=== PATIENT | male | born 1965 | race Two or more races ===

== ENCOUNTER 2018-09-03 21:39 | Inpatient (IN) | payer MEDICAID, OTHER ==
[~2018-09-03] VITALS: Ht 172.7 cm; Wt 93.0 kg
[2018-09-03] MEDS ORDERED: IV NORMAL SALINE 500 ML BAG IV ONE (22:15)
--- NOTE | 2018-09-03 22:16 | NUR ---
Xray at bedside
[2018-09-03 22:34] LABS: BASOPHILS # (AUTO) 0.1 K/uL (0.0-8.0); BASOPHILS % (AUTO) 1.1 % (0.0-2.0); HEMOGLOBIN 10.7 g/dL (12.5-16.3); LYMPHOCYTES # (AUTO) 2.1 K/uL (20.0-40.0); LYMPHOCYTES % (AUTO) 18.5 % (20.5-51.5); MEAN CORPUSCULAR HEMOGLOBIN 31.5 uug (23.8-33.4); MEAN CORPUSCULAR HGB CONC 34 g/dL (32.5-36.3); MEAN CORPUSCULAR VOLUME 91.5 fL (73.0-96.2); MONOCYTES # (AUTO) 0.5 K/uL (2.0-10.0); MONOCYTES % (AUTO) 4.3 % (0.0-11.0); NEUTROPHILS # (AUTO) 8.6 K/uL (1.8-8.9); NEUTROPHILS % (AUTO) 76.1 % (38.5-71.5); PLATELET COUNT (AUTO) 244 K/uL (152-348); RED BLOOD CELL COUNT(AUTO) 3.39 MIL/uL (4.06-5.63); WHITE BLOOD COUNT (AUTO) 11.3 K/uL (3.6-10.2)
[2018-09-03 22:44] LABS: POTASSIUM 3.6 mmol/L (3.5-5.1)
[2018-09-03 22:56] LABS: BILIRUBIN,DIRECT 0.3 mg/dL (0.0-0.2); BILIRUBIN,TOTAL 0.6 mg/dL (0.2-1.0); TOTAL PROTEIN, SERUM 6.2 g/dL (6.4-8.2)
[2018-09-03] MEDS ORDERED: VANCOMYCIN IV 1,000 MG in IV DEXTROSE 5% 250 ML IV ONE (23:15)
[2018-09-03] MEDS ORDERED: LEVOFLOXACIN 750 MG/D5W 150 ML PIGGYBACK IV ONE (23:15)
[2018-09-03] MEDS ORDERED: PIPERACILLIN SODIUM/TAZOBACTAM 4.5 G in IV DEXTROSE 5% 50 ML IV SCH (23:15)
[2018-09-03] MEDS ORDERED: PIPERACILLIN/TAZO 4.5 GM VIAL IV ONE (23:19)
[2018-09-03] MEDS ORDERED: IV NS 1000 ML 1,000 ML IV PRN (23:28)
[2018-09-03] MEDS ORDERED: ACETAMINOPHEN 325 MG TABLET PO PRN (23:30)
[2018-09-03] MEDS ORDERED: ONDANSETRON 4 MG/2 ML VIAL IV PRN (23:30)
[2018-09-03] MEDS ORDERED: IV NORMAL SALINE 1000 ML BAG IV ONE (23:30)
--- NOTE | 2018-09-03 23:30 | NUR ---
Dr. Rasmussen on panel call with Taya Tobias HOUSEKEEPING AIDE. Patient accepted to Tele, diagnosis Pneumonia.
[2018-09-03] MEDS ORDERED: LEVOFLOXACIN 750MG/D5W 150 ML IV ONE (23:37)
--- NOTE | 2018-09-03 23:49 | NUR ---
Report given to Farrukh ARREOLA Tele.
[2018-09-04] MEDS ORDERED: DEXTROSE 50% 50 ML DISP.SYRIN IV PRN
--- NOTE | 2018-09-04 | NUR ---
Patient is not considered a Code Sepsis per ER MD Rasmussen.
--- NOTE | 2018-09-04 00:01 | NUR ---
Pt. admitted to Telemetry , under care of Taya Tobias NP. Dx: PNA Belongs List completed
[2018-09-04] MEDS ORDERED: VANCOMYCIN IV 200 ML ONE (00:02)
--- NOTE | 2018-09-04 00:20 | NUR ---
Received patient from ER in stable condition. No acute distress noted. Admitted to telemetry under BIT TAPPER Taya Tobias. Admit Dx of PNA/Sepsis. Vital signs within range upon admission. Patient is afebrile. Sinus rhythm on tele monitor. Noted with 2 IV site both AC's 20G. Patient is A/Ox4 & able to make his needs known. skin intact. On 2L o2 via NC, denies SOB & pain. Noted with left arm swelling. Patient came in with Vanco & levaquin hanging. Will continue to run IV ATBs from ER & begin sepsis protocol per MD order.
[2018-09-04 00:25] VITALS: BP 130/75
[2018-09-04 00:26] LABS: BAND % (MANUAL) 2 % (0-10); LYMPHOCYTES % (MANUAL) 12 % (20-40); METAMYELOCYTES % 3 % (0-1); MONOCYTES % (MANUAL) 3 % (2-10); MYELOCYTES % 7 % (0-0); NEUTROPHILS % (MANUAL) 67 % (42-75)
[2018-09-04] MEDS ORDERED: ALBUTEROL SULFATE 2.5 MG/ 0.5 ML NEBU NEB PRN (00:30)
[2018-09-04] MEDS: BLOOD SUGAR DIAGNOSTIC 1 EACH STRIP VI SCH ×5 (00:54→23:25)
[2018-09-04] MEDS ORDERED: METRONIDAZOLE 500 MG/NS 100ML 100 ML IV SCH (01:00)
--- NOTE | 2018-09-04 01:00 | NUR ---
Per ER nurse, Sepsis protocol/fluid challenge was not started in ER because patient does not qualify with just an elevated lactic acid level. 1st Lactic acid was drawn in ER at 3.8. Second lactic acid level taken upon admission to unit. Elementary Substitute Teacher Jatinder put in orders for fluid challenge. Will complete ATB IV infusion from ER & begin fluid challenge. Patient currently stable sinus rhythm on tele, vital signs within range.
--- NOTE | 2018-09-04 01:25 | NUR ---
Lactic acid at 4.6. Informed airline reservation agent Stefan Nichols with [facility]. Will continue to monitor patient through shift.
--- NOTE | 2018-09-04 03:00 | NUR ---
IV ATB Levaquin infused. Fluid challenge starting with total of 3L of IV fluids to be infused over 4-5 hours per protocol. Will continue to monitor through shift.
[2018-09-04 03:38] VITALS: BP 117/73
[2018-09-04] MEDS ORDERED: PIPERACILLIN SODIUM/TAZO 3.375 GM VIAL ONE (04:06)
[2018-09-04] MEDS ORDERED: METRONIDAZOLE 500 MG/NS 100ML 100 ML IV ONE (04:07)
[2018-09-04] MEDS: METRONIDAZOLE 500 MG/NS 100ML 100 ML IV SCH ×3 (05:20→22:25)
[2018-09-04] MEDS: PIPERACILLIN SODIUM/TAZOBACTAM 3.375 G in IV DEXTROSE 5% 50 ML IV SCH ×4 (06:27→23:57)
--- NOTE | 2018-09-04 07:00 | NUR ---
Fluid challenge completed. Patient is stable. Vital signs within range. Sinus rhythm on tele monitor. Patient is alert, awake, & verbally responsive. Informed BOND RUNNER Taya Tobias about completion of fluid challenge. Per BOND RUNNER, waiting on LA draw & we will go from there. Blood sugar this AM at 172. All needs attended to. All meds given per MD order. will endorse to oncoming shift.
[2018-09-04 07:03] LABS: BASOPHILS # (AUTO) 0.1 K/uL (0.0-8.0); BASOPHILS % (AUTO) 0.5 % (0.0-2.0); HEMATOCRIT 30.3 % (36.7-47.1); HEMOGLOBIN 10.3 g/dL (12.5-16.3); LYMPHOCYTES # (AUTO) 2.5 K/uL (20.0-40.0); LYMPHOCYTES % (AUTO) 22.3 % (20.5-51.5); MEAN CORPUSCULAR HEMOGLOBIN 31.4 uug (23.8-33.4); MEAN CORPUSCULAR HGB CONC 34 g/dL (32.5-36.3); MEAN CORPUSCULAR VOLUME 92.5 fL (73.0-96.2); MONOCYTES # (AUTO) 0.5 K/uL (2.0-10.0); MONOCYTES % (AUTO) 4.6 % (0.0-11.0); NEUTROPHILS # (AUTO) 8.3 K/uL (1.8-8.9); NEUTROPHILS % (AUTO) 72.6 % (38.5-71.5); PLATELET COUNT (AUTO) 235 K/uL (152-348); RED BLOOD CELL COUNT(AUTO) 3.27 MIL/uL (4.06-5.63); WHITE BLOOD COUNT (AUTO) 11.4 K/uL (3.6-10.2)
[2018-09-04 07:20] LABS: BILIRUBIN,TOTAL 0.6 mg/dL (0.2-1.0); CREATININE 0.7 mg/dL (0.6-1.3); MAGNESIUM 1.5 mg/dL (1.8-2.4); PHOSPHOROUS 3.3 mg/dL (2.5-4.9); POTASSIUM 3.6 mmol/L (3.5-5.1); TOTAL PROTEIN, SERUM 5.7 g/dL (6.4-8.2)
[2018-09-04 07:27] LABS: THYROID STIMULATING HORMONE 1.722 mIU/mL (0.358-3.740)
--- NOTE | 2018-09-04 07:30 | NUR ---
Awake, alert, oriented x 3. O2 at 2L/NC. IVF infusing. Tele SR.
[2018-09-04 07:36] LABS: BAND % (MANUAL) 3 % (0-10); LYMPHOCYTES % (MANUAL) 15 % (20-40); METAMYELOCYTES % 4 % (0-1); MONOCYTES % (MANUAL) 4 % (2-10); MYELOCYTES % 10 % (0-0); NEUTROPHILS % (MANUAL) 64 % (42-75)
[2018-09-04 09:00] VITALS: BP 114/72
[2018-09-04] MEDS: PANTOPRAZOLE SODIUM 40 MG VIAL IV SCH (09:35)
--- NOTE | 2018-09-04 10:32 | NUR ---
Clinical Pharmacy Note: Vancomycin Dosing per Pharmacy Subjective: Vancomycin IV to start on this 53 yo male patient for pna Objective: BUN 18/Scr 1.0 WBC 11.4 Temperature 98.1 ht 172.7 cm wt 92.9 kg Assessment/Plan: Patient received vanco 1gm IVPB x1 in ED on 09/04 at midnight. Will start vancomycin 1500mg IVPB Q14hr for a predicted vancomycin steady state trough level of 15.4 mcg/ml. 1st dose is due today at noon.Will draw a vancomycin trough level prior to the 4th dose of vancomycin (not ordered yet). Will monitor renal function and adjust vancomycin dose, if needed, should renal function change significantly. Will follow daily.
[2018-09-04 11:46] VITALS: BP 109/55
--- NOTE | 2018-09-04 12:00 | NUR ---
Patient wants to sit on the chair. Assisted x 2 max assist stand pivot to the chair. Lunch served with regular consistency as cleared by
[2018-09-04] MEDS: INSULIN REGULAR, HUMAN 300 UNIT/3 ML VIAL SQ PRN ×3 (12:53→23:29)
[2018-09-04] MEDS: VANCOMYCIN IV 1,500 MG in IV DEXTROSE 5% 500 ML IV SCH (14:18)
--- NOTE | 2018-09-04 15:00 | NUR ---
RAC IV pulled out. With orders for Midline insertion. informed.
[2018-09-04 16:10] VITALS: BP 130/95
[2018-09-04] MEDS ORDERED: INSU200I SQ ×2 (16:31)
[2018-09-04] MEDS ORDERED: DOCU100C36 PO (16:31)
[2018-09-04] MEDS ORDERED: DIVA-78 PO (16:31)
[2018-09-04] MEDS ORDERED: NICO-672 TD (16:31)
[2018-09-04] MEDS ORDERED: LEVA0.6320 IH (16:31)
[2018-09-04] MEDS ORDERED: SULF1TAB47 PO (16:31)
[2018-09-04] MEDS ORDERED: ALEC150C PO (16:31)
[2018-09-04] MEDS ORDERED: LORA0.5T PO (16:31)
[2018-09-04] MEDS ORDERED: METO25TA6 PO (16:31)
[2018-09-04] MEDS ORDERED: PANT40TA4 PO (16:31)
[2018-09-04] MEDS ORDERED: QUET50TA PO (16:31)
[2018-09-04] MEDS ORDERED: DEXA4TAB PO (16:31)
[2018-09-04] MEDS ORDERED: POLY17PO4 GT (16:31)
[2018-09-04] MEDS ORDERED: LEVE500T20 PO (16:31)
[2018-09-04] MEDS ORDERED: INSU100V7 SQ (16:31)
[2018-09-04] MEDS ORDERED: SENN-18 PO (16:31)
[2018-09-04] MEDS ORDERED: ACET-2154 PO (16:31)
--- NOTE | 2018-09-04 18:00 | NUR ---
reminded of midline insertion. Specimen for sputum, influenza, urine sent to lab as ordered. Taya ROSS asked to reconcile medications
[2018-09-04 18:33] LABS: *BILIRUBIN,URIN NEGATIVE (NEGATIVE); *BLOOD, URINE 1+ (NEGATIVE); *CLARITY,URINE CLEAR (CLEAR); *COLOR,URINE YELLOW (YELLOW); *KETONES,URINE TRACE (NEGATIVE); *PROTEIN,URINE NEGATIVE (NEGATIVE); *UROBILINOGEN,URINE 0.2 E.U./dl (NORMAL); LEUKOCYTE ESTERASE ,URINE NEGATIVE (NEGATIVE); NITRITE, URINE NEGATIVE (NEGATIVE); UGLUCOSE NEGATIVE (NEGATIVE)
[2018-09-04] MEDS ORDERED: Medication Not On Formulary EA (Quetiapine Fumarate (Seroquel) 50 MG) PO PRN (18:45)
[2018-09-04 19:00] VITALS: BP 122/71
[2018-09-04] MEDS ORDERED: QUETIAPINE FUMARATE 25 MG TABLET PO PRN (19:00)
--- NOTE | 2018-09-04 19:04 | NUR ---
END OF SHIFT REPORT; PATIENT AOX3. VITAL SIGNS STABLE THROUGHOUT THE SHIFT. PATIENT GIVEN MULTIPLE ANTIBIOTICS ORDERED, IVF TO L AC RUNNING AT 75CC/HR. PATIENT ON O2 NC AT 2L SATURATING 95%. SPUTUM CULTURE COLLECTED.
--- NOTE | 2018-09-04 19:30 | NUR ---
Patient awake, alert, oriented x4 at start of shift with no acute distress. Vital signs within range. Pertinent assessment completed. Family at the bedside at beginning of shift. IV ATB/fluids running into Left AC 20G with no signs of infiltration noted. Endorsed from day shift nurse to give [address] Zabala currently at the bedside along with family discussing patient meds. Patient to continue taking home meds per Dr. Zabala. Per day shift nurse, waiting for midline insertion from Dr. Trujillo. Bed in low position, locked, x2 side rails up. Call light within reach. Will continue to monitor through shift.
[2018-09-04] MEDS: ALBUTEROL SULFATE 1.25 MG/3 ML NEBU NEB SCH (19:39)
[2018-09-04 19:46] LABS: MUCUS,URINE FEW /LPF (0-FEW); WBC,URINE 0-3 /HPF (0-3)
[2018-09-04] MEDS: MAGNESIUM SULFATE/D5W 100 ML IV SCH ×2 (19:53→21:02)
--- NOTE | 2018-09-04 20:00 | NUR ---
Dr. Zabala requesting patient to have psych consult. Will contact VANDANA Tobias for order & continue to monitor.
[2018-09-04] MEDS: DIVALPROEX 250 MG TABLET.DR PO SCH (20:07)
[2018-09-04] MEDS: [UNRECOGNIZED DRUG - OTHER] PO SCH (20:07)
[2018-09-04] MEDS: DEXAMETHASONE 1 MG TABLET PO SCH (20:08)
[2018-09-04] MEDS ORDERED: DIVALPROEX 500 MG TABLET.DR PO SCH (21:00)
[2018-09-04] MEDS ORDERED: DEXAMETHASONE 4 MG TABLET PO SCH (21:00)
[2018-09-04] MEDS ORDERED: SENNOSIDES 1 TABLET PO SCH (21:00)
[2018-09-04] MEDS ORDERED: MIRTAZAPINE 15 MG TABLET PO PRN (21:30)
--- NOTE | 2018-09-04 21:43 | NUR ---
Patient requesting sleep aid. Contacted Dr. Trujillo with new order for Restoril 15mg PO q HS PRN sleep. Will carry out order & continue to monitor.
[2018-09-04] MEDS ORDERED: TEMAZEPAM 15 MG CAPSULE PO PRN (21:45)
[2018-09-05] MEDS ORDERED: LEVALBUTEROL HCL NEB 0.63 MG/3 ML NEBU IH SCH
[2018-09-05] MEDS: ALBUTEROL SULFATE 1.25 MG/3 ML NEBU NEB SCH ×3 (01:30→13:38)
[2018-09-05] MEDS: VANCOMYCIN IV 1,500 MG in IV DEXTROSE 5% 500 ML IV SCH ×2 (02:00→15:12)
--- NOTE | 2018-09-05 02:00 | NUR ---
Previous IV site infiltrated. New IV site inserted by ER nurse in right shoulder 20G. Good venous return, patient tolerated well.
[2018-09-05 04:00] VITALS: BP 121/70
[2018-09-05] MEDS: METRONIDAZOLE 500 MG/NS 100ML 100 ML IV SCH (05:01)
[2018-09-05] MEDS: BLOOD SUGAR DIAGNOSTIC 1 EACH STRIP VI SCH ×2 (05:27→13:14)
[2018-09-05] MEDS: INSULIN REGULAR, HUMAN 300 UNIT/3 ML VIAL SQ PRN (05:28)
--- NOTE | 2018-09-05 05:36 | NUR ---
Blood sugar elevated this AM. 305 first time, 316 second check. Per Sliding scale administered 8 units of insulin. Patient is asymptomatic with no signs of hyperglycemia noted. Will reassess blood sugar.
[2018-09-05] MEDS: IPRATROPIUM BROMIDE 0.5 MG/2.5 ML NEBU NEB PRN ×2 (06:13→13:38)
[2018-09-05] MEDS: PIPERACILLIN SODIUM/TAZOBACTAM 3.375 G in IV DEXTROSE 5% 50 ML IV SCH ×2 (06:15→13:13)
--- NOTE | 2018-09-05 06:47 | NUR ---
Blood sugar reassessed at 273. No signs of hyperglycemia noted. Patient continues to cough up blood. Vital signs within range. No acute distress through out shift. Breathing TX administered as ordered. All needs attended to promptly. Safety & comfort measures provided. Call light in reach. Will endorse to day shift nurse.
[2018-09-05 08:00] VITALS: BP 135/80
--- NOTE | 2018-09-05 08:00 | NUR ---
Report received .Pt remains awake,alert.Denies pain,discomfort.Respiration non labored.Noted with productive cough.Assisted with transfer from bed to chair.IV fluids infusing to iv on right shoulder.Will continue to monitor.
[2018-09-05 08:45] LABS: BASOPHILS # (AUTO) 0.3 K/uL (0.0-8.0); BASOPHILS % (AUTO) 2.6 % (0.0-2.0); HEMATOCRIT 33.8 % (36.7-47.1); HEMOGLOBIN 11.4 g/dL (12.5-16.3); LYMPHOCYTES # (AUTO) 2.3 K/uL (20.0-40.0); LYMPHOCYTES % (AUTO) 18.1 % (20.5-51.5); MEAN CORPUSCULAR HGB CONC 34 g/dL (32.5-36.3); MEAN CORPUSCULAR VOLUME 91.7 fL (73.0-96.2); MONOCYTES # (AUTO) 0.5 K/uL (2.0-10.0); MONOCYTES % (AUTO) 3.8 % (0.0-11.0); NEUTROPHILS # (AUTO) 9.7 K/uL (1.8-8.9); NEUTROPHILS % (AUTO) 75.5 % (38.5-71.5); PLATELET COUNT (AUTO) 255 K/uL (152-348); RED BLOOD CELL COUNT(AUTO) 3.68 MIL/uL (4.06-5.63); WHITE BLOOD COUNT (AUTO) 12.8 K/uL (3.6-10.2)
[2018-09-05] MEDS ORDERED: INSULIN REGULAR, HUMAN 300 UNIT/3 ML VIAL SQ PRN (08:45)
[2018-09-05] MEDS ORDERED: [UNRECOGNIZED DRUG - OTHER] PO SCH (09:00)
[2018-09-05] MEDS ORDERED: FUROSEMIDE 20 MG/2 ML VIAL IV ONE (09:00)
[2018-09-05] MEDS ORDERED: INSULIN GLARGINE,HUM 300 UNITS/3 ML CARTRIDGE SQ SCH (09:00)
[2018-09-05] MEDS ORDERED: NICOTINE 21 MG/24HR PATCH TD SCH (09:00)
[2018-09-05] MEDS: PANTOPRAZOLE SODIUM 40 MG VIAL IV SCH (09:00)
[2018-09-05] MEDS ORDERED: METOPROLOL TARTRATE 25 MG TABLET PO SCH (09:00)
[2018-09-05] MEDS ORDERED: PANTOPRAZOLE SODIUM 40 MG TABLET.DR PO SCH (09:00)
[2018-09-05 09:09] LABS: CREATININE 0.8 mg/dL (0.6-1.3); MAGNESIUM 1.8 mg/dL (1.8-2.4); PHOSPHOROUS 3.6 mg/dL (2.5-4.9); POTASSIUM 3.5 mmol/L (3.5-5.1)
[2018-09-05 09:22] LABS: BAND % (MANUAL) 1 % (0-10); LYMPHOCYTES % (MANUAL) 21 % (20-40); METAMYELOCYTES % 5 % (0-1); MONOCYTES % (MANUAL) 4 % (2-10); MYELOCYTES % 3 % (0-0); NEUTROPHILS % (MANUAL) 66 % (42-75)
[2018-09-05] MEDS: LEVETIRACETAM 500 MG TABLET PO SCH ×2 (09:22→17:00)
[2018-09-05] MEDS: [UNRECOGNIZED DRUG - OTHER] PO SCH ×2 (09:23→17:00)
[2018-09-05] MEDS: DIVALPROEX 250 MG TABLET.DR PO SCH (09:23)
[2018-09-05] MEDS: DEXAMETHASONE 1 MG TABLET PO SCH (09:23)
--- NOTE | 2018-09-05 10:00 | NUR ---
Seen,examined by VANDANA Bain,updated on pt condition.
--- NOTE | 2018-09-05 10:00 | NUR ---
Seen,examined by VANDANA Whitfield for .Pt placed on Airborne isolation to r/o TB.Pt sister Jaquelin was informed.
[2018-09-05 11:37] VITALS: BP 123/81
[2018-09-05] MEDS ORDERED: NICOTINE 14 MG/24HR PATCH TD SCH (14:41)
--- NOTE | 2018-09-05 14:54 | NUR ---
Clinical Pharmacy Note: Vancomycin Dosing per Pharmacy Subjective: Vancomycin IV to continue on this 53 yo male patient for pna Objective: BUN 14/Scr 0.8 WBC 12.8 Temperature 98.3 ht 172.7 cm wt 92.9 kg trough: pending 0530 09/05/18 Assessment/Plan: Will continue vanco 1gm q14h for estimated trough of 15.4. Trough ordered before 4th dose tomorrow early am at 0530. RN endorsed to hold dose if trough >20. Will check level in am and adjust as needed. Will follow
[2018-09-05] MEDS ORDERED: Blood Sugar Diagnostic VI (15:07)
[2018-09-05] MEDS ORDERED: DIVA250T4 PO (15:07)
[2018-09-05] MEDS ORDERED: ALBU1.25 NEB (15:07)
[2018-09-05] MEDS ORDERED: ACET325T53 PO (15:07)
[2018-09-05] MEDS ORDERED: ACET325S8 PO (15:07)
[2018-09-05] MEDS ORDERED: ONDA4VIA23 IV (15:07)
[2018-09-05] MEDS ORDERED: IPRA0.2S6 NEB (15:07)
[2018-09-05] MEDS ORDERED: QUET25TA PO (15:07)
[2018-09-05] MEDS ORDERED: RXVAN IV (15:07)
[2018-09-05] MEDS ORDERED: ALBU2.5V13 NEB (15:07)
[2018-09-05] MEDS ORDERED: TEMA15CA5 PO (15:07)
[2018-09-05] MEDS ORDERED: DEXT50DI8 IV (15:07)
[2018-09-05] MEDS ORDERED: Insulin Glargine,Hum SQ (15:07)
[2018-09-05] MEDS ORDERED: DEXA1TAB2 PO (15:07)
[2018-09-05] MEDS ORDERED: INSU100V28 SQ (15:07)
[2018-09-05 15:38] VITALS: BP 115/51
--- NOTE | 2018-09-05 16:00 | NUR ---
Report given to ELBA Dunlap from [facility].Awaiting for ambulance.
--- NOTE | 2018-09-05 17:25 | NUR ---
Report given to ambulance.Discharge instruction provided to pt.Verbalized understanding.
[2018-09-09 12:06] LABS: CRYPTOCOCCUS AB, SERUM Negative (Negative)
[2018-09-10 15:09] LABS: IMMUNOGLOBULIN E, TOTAL 4 IU/mL (0-100)
[2018-09-10 20:06] LABS: COCCIDIOIDES CF SERUM Negative (Neg:<1:2)
== END 2018-09-05 17:45 | disposition short-term general hospital (02) | DRG 137 ==
LOC: ER 21:43 → TELE 23:30 → MED 09-04 12:11
PROVIDERS: ADMIT Registered Nurse; ATTEND Registered Nurse
DX: J69.0 Pneumonitis due to inhalation of food and vomit (principal); G93.6 Cerebral edema; C79.31 Secondary malignant neoplasm of brain; J91.8 Pleural effusion in other conditions classified elsewhere; E44.0 Moderate protein-calorie malnutrition; I82.622 Acute embolism and thrombosis of deep veins of left upper extremity; E87.2 Acidosis; E11.65 Type 2 diabetes mellitus with hyperglycemia; E83.42 Hypomagnesemia; C34.90 Malignant neoplasm of unspecified part of unspecified bronchus or lung; R04.2 Hemoptysis; Y92.129 Unspecified place in nursing home as the place of occurrence of the external cause; D63.8 Anemia in other chronic diseases classified elsewhere; E66.9 Obesity, unspecified; E78.5 Hyperlipidemia, unspecified; F41.9 Anxiety disorder, unspecified; F45.29 Other hypochondriacal disorders; Z92.21 Personal history of antineoplastic chemotherapy; Z68.31 Body mass index [BMI] 31.0-31.9, adult; G40.909 Epilepsy, unspecified, not intractable, without status epilepticus; Z79.4 Long term (current) use of insulin; Z72.0 Tobacco use; I69.354 Hemiplegia and hemiparesis following cerebral infarction affecting left non-dominant side; G47.33 Obstructive sleep apnea (adult) (pediatric); E78.00 Pure hypercholesterolemia, unspecified; D72.829 Elevated white blood cell count, unspecified; T38.0X5A Adverse effect of glucocorticoids and synthetic analogues, initial encounter; I10 Essential (primary) hypertension; Z87.01 Personal history of pneumonia (recurrent); J44.9 Chronic obstructive pulmonary disease, unspecified
CPT/HCPCS: 36415; 70030-TC; 70450; 71045; 71250; 82785; 83605; 83735; 84100; 84443; 85025; 85730; 86606; 87040; 87070; 87086; 87278; 87328; 87400; 92610; 93005; 93307; 94640; 94664; 97110; 97112; 97530; A4663; C9113; J1815; J1940; J1956; J2543; J3370; J3475; J3490; J3590; J7030; J7040; J7060; J8540